=== PATIENT | male | born 1955 | race Caucasian/White ===

== ENCOUNTER 2018-03-24 12:57 | Outpatient (CLI) ==
[2013-02-09 11:34] VITALS: BMI 18.2
[2018-03-24] MEDS: ALBUTEROL 0.083% NEB NEB STA (13:49)
== END 2018-03-24 12:58 | disposition home or self-care (01) ==
LOC: CAR 12:57
PROVIDERS: ATTEND Physician Assistant
DX: R06.02 Shortness of breath (principal)